=== PATIENT | female | born 1945 | race Caucasian/White ===

== ENCOUNTER 2024-08-16 10:57 | Emergency (ER) | payer MEDICARE, SELFPAY ==
[2024-08-16 11:07] VITALS: BP 138/83; PULSE 80; RESP 16; TEMP 36.5; O2SAT 99
--- NOTE | 2024-08-16 11:17 | ED_ITS ---
HPI - Female Genitourinary General Chief complaint: Urogenital-Female Stated complaint: Urinary Problem Time Seen by Provider: 08/16/24 11:45 Source: patient and RN notes reviewed Mode of arrival: ambulatory Limitations: no limitations History of Present Illness HPI Narrative: 78-year-old female presented for complaint of burning with urination and large amount of blood in the urine. Onset this morning. Patient states she was treated with antibiotics for UTI on 07/29. She admits she did not complain them and began taking the remaining tablets about 1 week ago. Denies nausea, vomiting, abdominal pain, flank pain, constipation, diarrhea, fevers or chills. Related Data Allergies Allergy/AdvReac Type Severity Reaction Status Date / Time codeine Allergy Unknown ELEVATED Verified 08/16/24 11:25 HEARTRATE Review of Systems Review of Systems: CONSTITUTIONAL: Denies body aches, fever, chills, or sweats. CARDIOVASCULAR: Denies chest pain, palpitations, or edema. RESPIRATORY: Denies cough or dyspnea. GASTROINTESTINAL: Denies abdominal pain, nausea, vomiting, or diarrhea. GENITOURINARY: Reports dysuria, hematuria denies frequency, urgency, flank pain, discharge SKIN: Denies rash, itching, or wounds. MUSCULOSKELETAL: Denies back pain or myalgia. PMFSH Comments At time of signature, I have reviewed and agree with nursing past medical, surgical, social and family history unless otherwise noted. Please see nursing chart for further information. There is no relevant family history pertinent to the presenting complaint Exam Narrative: GENERAL: Well-appearing and in no acute distress. ENT: Mucous membranes pink and moist. NECK: Normal AROM. Supple. CHEST: No respiratory distress. Clear to auscultation. HEART: Regular rate and rhythm. ABDOMEN: Soft, nontender, nondistended, normal active bowel sounds. No CVA tenderness SKIN: Warm, dry, no rash. NEURO: No focal deficits. Alert and oriented x3. Gait steady. PSYCH: Normal affect. Course Course Emergency Course: Patient is aware of diagnosis, understands and agrees to treatment plan. Anticipatory guidance given. Patient agrees to follow-up as directed and is aware of reasons to seek care at the emergency department. Portions of this record may have been created with voice recognition software Level of Care: Express Care Visit Vital Signs Vital signs: Vital Signs Temperature 97.7 F 08/16/24 11:07 Pulse Rate 80 06/22/25 11:07 Respiratory Rate 16 08/16/24 11:07 Blood Pressure 138/83 08/16/24 11:07 Pulse Oximetry 99 08/16/24 11:07 Oxygen Delivery Room Air 08/16/24 11:07 Temperature 97.7 F 08/16/24 11:07 Pulse Rate 80 08/16/24 11:07 Respiratory Rate 16 08/16/24 11:07 Blood Pressure 138/83 08/16/24 11:07 Pulse Oximetry 99 08/16/24 11:07 Oxygen Delivery Room Air 08/16/24 11:07 Reviewed MDM - Female Genitourinary MDM Narrative Medical decision making narrative: Discussed physical exam findings, will send urine culture only and treat at this time. Advised supportive measures and signs/symptoms to go to the ER. Pt is appropriate for outpt treatment and f/u. Differential Diagnosis Differential diagnosis: Likely urinary tract infection, cystitis and other Discharge Plan Discharge Clinical Impression: Hematuria Patient Disposition: Home Condition: Stable Instructions: Antibiotic Form, Hematuria (ED) Additional Instructions: Take the antibiotic as prescribed The urine will be sent of for a culture to identify what type of bacteria is causing your infection. If the culture shows that the antibiotic will not get rid of your infection, you will be notified and a new antibiotic will be called in for you. Increase water intake you will need to follow up with your PCP, call tomorrow to schedule an appointment. Go to the ER for any worsening symptoms or concerns Patient Language: Taiwanese Prescriptions: New amoxicillin-pot clavulanate [Augmentin] 500-125 mg tablet 1 tablet PO Q12H 7 Days Qty: 14 0RF Follow-up/Referrals: Harms,Bubba Sharif M.D. [Primary Care Provider] - Time of Disposition: 11:52
== END 2024-08-16 11:55 | disposition home or self-care (01) ==
PROVIDERS: Emergency Provider Nurse Practitioner Family; PCP Family Medicine
DX: R31.9 Hematuria, unspecified (principal)
CPT/HCPCS: 87077; 87086; 87186; 99203; G0463